=== PATIENT | male | born 1965 | race American Indian/Alaskan Native ===

== ENCOUNTER 2018-06-15 22:08 | Emergency (ER) | payer OTHER ==
[2018-06-15 22:31] VITALS: BP 164/99
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
[2018-06-16] MEDS ORDERED: ULTRAM PO ONE (01:09)
[2018-06-16] MEDS ORDERED: TORADOL IM ONE (01:09)
[2018-06-16] MEDS ORDERED: TORADOL ONE (01:14)
[2018-06-16] MEDS ORDERED: ULTRAM ONE (01:15)
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
== END 2018-06-16 01:41 | disposition home or self-care (01) ==
LOC: ED 22:08
DX: S02.5XXB Fracture of tooth (traumatic), initial encounter for open fracture (principal); F17.200 Nicotine dependence, unspecified, uncomplicated; Y04.2XXA Assault by strike against or bumped into by another person, initial encounter; Y93.89 Activity, other specified; Y92.098 Other place in other non-institutional residence as the place of occurrence of the external cause; Y99.8 Other external cause status
CPT/HCPCS: 70100; 99283; J1885